=== PATIENT | female | born 1950 | race Caucasian/White ===

== ENCOUNTER 2016-03-14 23:50 | Emergency (ER) | payer MEDICARE ==
[2016-03-14] MEDS ORDERED: SODIUM CHLORIDE 0.9% 1,000 ML IV STA ×2 (23:54)
[2016-03-14] MEDS ORDERED: MORPHINE SULFATE 4 MG/ML SYRINGE IV STA (23:54)
[2016-03-15 00:05] VITALS: RESP 18
[2016-03-15] MEDS ORDERED: DIPH,PERTUS(ACELL)TETVAC-LF 0.5 ML VIAL IM ONE (00:28)
[2016-03-15] MEDS ORDERED: ceFAZolin 1,000 MG in DEXTROSE/WATER 1 50ML.BAG IVPB STA (00:28)
--- NOTE | 2016-03-15 00:28 | ED ---
General Adult HPI - General Stated complaint: fall Time Seen by Provider: 03/14/16 23:54 Source: patient, EMS, RN notes reviewed, old records reviewed Mode of arrival: EMS Limitations: no limitations - History of Present Illness Initial comments: This is a 65 female ER for evaluation. This patient presents for evaluation of fall. Patient does admit to alcohol drinking tonight, fell onto stairs landing on her face. States that she has bleeding for face pain herno loss of consciousness. Patient is not on blood thinners. Patient denies any other pain or complaints - Related Data Allergies Allergy/AdvReac Type Severity Reaction Status Date / Time No Known Allergies Allergy Verified 03/15/16 00:01 Review of Systems ROS Statement: Those systems with pertinent positive or pertinent negative responses have been documented in the HPI. ROS Other: All systems not noted in ROS Statement are negative. General Exam Limitations: no limitations General appearance: alert, in no apparent distress Head exam: Absent: atraumatic (Patient does have significant deformity to nose and upper lip, no loose teeth, no evidence of before, no severe ecchymosis, patient does have skin avulsion to nose) Eye exam: Present: normal appearance, PERRL, EOMI. Absent: scleral icterus, conjunctival injection, periorbital swelling ENT exam: Present: normal exam, mucous membranes moist Neck exam: Present: normal inspection. Absent: tenderness, meningismus, lymphadenopathy Respiratory exam: Present: normal lung sounds bilaterally. Absent: respiratory distress, wheezes, rales, rhonchi, stridor Cardiovascular Exam: Present: regular rate, normal rhythm, normal heart sounds. Absent: systolic murmur, diastolic murmur, rubs, gallop, clicks GI/Abdominal exam: Present: soft, normal bowel sounds. Absent: distended, tenderness, guarding, rebound, rigid Extremities exam: Present: normal inspection, full ROM, normal capillary refill. Absent: tenderness, pedal edema, joint swelling, calf tenderness Back exam: Present: normal inspection Neurological exam: Present: alert, oriented X3, CN II-XII intact Psychiatric exam: Present: normal affect, normal mood Skin exam: Present: warm, dry, intact, normal color. Absent: rash Course Vital Signs 03/14/16 03/15/16 03/15/16 23:57 01:00 01:20 Temperature 98.7 F Pulse Rate 66 79 68 Respiratory 18 18 18 Rate Blood Pressure 156/74 104/63 142/68 O2 Sat by Pulse 98 98 97 Oximetry - Reevaluation(s) Reevaluation #1: 03/15/16 01:29 At this time patient is able to have pain control achieved, resting comfortably EKG Findings - EKG Comments: EKG Findings:: EKG shows sinus rhythm rate of 62, DE 190, QRS 78, QTC 448 Medical Decision Making - Medical Decision Making 65 female in the ER for evaluation status post alcohol intoxication fall. Patient complex life issues now with of her son's , patient centile was drinking today did fall down stairs, did suffer from nasal fracture as well as complex nasal laceration. Patient will be need to need transfer for plastic surgery correction - Lab Data Result diagrams: 03/15/16 00:05 03/15/16 00:05 Lab Results 03/15/16 03/15/16 03/15/16 Range/Units 00:05 00:05 00:05 WBC 6.9 (3.8-10.6) k/uL RBC 4.11 (3.80-5.40) m/uL Hgb 13.2 (11.4-16.0) gm/dL Hct 39.8 (34.0-46.0) % MCV 96.9 (80.0-100.0) fL MCH 32.2 (25.0-35.0) pg MCHC 33.2 (31.0-37.0) g/dL RDW 13.1 (11.5-15.5) % Plt Count 200 (150-450) k/uL Neutrophils % 50 % Lymphocytes % 40 % Monocytes % 4 % Eosinophils % 3 % Basophils % 1 % Neutrophils # 3.4 (1.3-7.7) k/uL Lymphocytes # 2.7 (1.0-4.8) k/uL Monocytes # 0.3 (0-1.0) k/uL Eosinophils # 0.2 (0-0.7) k/uL Basophils # 0.1 (0-0.2) k/uL PT (9.0-12.0) sec INR (<1.1) APTT (22.0-30.0) sec Sodium 142 (137-145) mmol/L Potassium 3.4 L (3.5-5.1) mmol/L Chloride 103 (98-107) mmol/L Carbon Dioxide 21 L (22-30) mmol/L Anion Gap 18 mmol/L BUN 7 (7-17) mg/dL Creatinine 0.60 (0.52-1.04) mg/dL Est GFR (MDRD) Af Amer >60 (>60 ml/min/1.73 sqM) Est GFR (MDRD) Non-Af >60 (>60 ml/min/1.73 sqM) Glucose 112 H (74-99) mg/dL Calcium 8.9 (8.4-10.2) mg/dL Phosphorus 4.2 (2.5-4.5) mg/dL Magnesium 1.9 (1.6-2.3) mg/dL Total Bilirubin 0.4 (0.2-1.3) mg/dL AST 34 (14-36) U/L ALT 31 (9-52) U/L Alkaline Phosphatase 49 (38-126) U/L Total Creatine Kinase 316 H (30-135) U/L CK-MB (CK-2) 3.2 H* (0.0-2.4) ng/mL CK-MB (CK-2) Rel Index 1.0 Troponin I <0.012 (0.000-0.034) ng/mL Total Protein 7.1 (6.3-8.2) g/dL Albumin 4.2 (3.5-5.0) g/dL Serum Alcohol 224 mg/dL 03/15/16 Range/Units 00:05 WBC (3.8-10.6) k/uL RBC (3.80-5.40) m/uL Hgb (11.4-16.0) gm/dL Hct (34.0-46.0) % MCV (80.0-100.0) fL MCH (25.0-35.0) pg MCHC (31.0-37.0) g/dL RDW (11.5-15.5) % Plt Count (150-450) k/uL Neutrophils % % Lymphocytes % % Monocytes % % Eosinophils % % Basophils % % Neutrophils # (1.3-7.7) k/uL Lymphocytes # (1.0-4.8) k/uL Monocytes # (0-1.0) k/uL Eosinophils # (0-0.7) k/uL Basophils # (0-0.2) k/uL PT 10.5 (9.0-12.0) sec INR 1.0 (<1.1) APTT 21.3 L (22.0-30.0) sec Sodium (137-145) mmol/L Potassium (3.5-5.1) mmol/L Chloride (98-107) mmol/L Carbon Dioxide (22-30) mmol/L Anion Gap mmol/L BUN (7-17) mg/dL Creatinine (0.52-1.04) mg/dL Est GFR (MDRD) Af Amer (>60 ml/min/1.73 sqM) Est GFR (MDRD) Non-Af (>60 ml/min/1.73 sqM) Glucose (74-99) mg/dL Calcium (8.4-10.2) mg/dL Phosphorus (2.5-4.5) mg/dL Magnesium (1.6-2.3) mg/dL Total Bilirubin (0.2-1.3) mg/dL AST (14-36) U/L ALT (9-52) U/L Alkaline Phosphatase (38-126) U/L Total Creatine Kinase (30-135) U/L CK-MB (CK-2) (0.0-2.4) ng/mL CK-MB (CK-2) Rel Index Troponin I (0.000-0.034) ng/mL Total Protein (6.3-8.2) g/dL Albumin (3.5-5.0) g/dL Serum Alcohol mg/dL - Radiology Data Radiology results: report reviewed (CT brain C-spine are negative, is CT face shows complex laceration with nasal fracture), image reviewed Disposition Clinical Impression: Nasal fracture, Fall, Alcohol intoxication, Complex laceration of nose Disposition: OTHER INSTITUTION NOT DEFINED Condition: Fair Referrals: Nonstaff,Physician [Primary Care Provider] - 1-2 days - Out of Hospital Transfer - Req. Specs Out of Hospital Transfer - Requested Specifics: Other Emergency Center ( [facility]
[2016-03-15 00:33] LABS: Basophils # (A) 0.1 k/uL (0-0.2); Basophils % (A) 1 %; CH 33.3; CHCM 34.5; Eosinophils # (A) 0.2 k/uL (0-0.7); Eosinophils % (A) 3 %; HCT 39.8 % (34.0-46.0); HDW 2.17; HGB 13.2 gm/dL (11.4-16.0); Luc # (Auto) 0.19; Luc % (Auto) 3; Lymphocytes # (A) 2.7 k/uL (1.0-4.8); Lymphocytes % (A) 40 %; MCH 32.2 pg (25.0-35.0); MCHC 33.2 g/dL (31.0-37.0); MCV 96.9 fL (80.0-100.0); Mean Platelet Volume 7.4; Monocytes # (A) 0.3 k/uL (0-1.0); Monocytes % (A) 4 %; Neutrophils # (A) 3.4 k/uL (1.3-7.7); Neutrophils % (A) 50 %; RBC 4.11 m/uL (3.80-5.40); RDW 13.1 % (11.5-15.5); WBC 6.9 k/uL (3.8-10.6); WBC (Perox) 7.12
[2016-03-15 00:41] LABS: ALT 31 U/L (9-52); AST 34 U/L (14-36); Alkaline Phosphatase 49 U/L (38-126); Anion Gap 18 mmol/L; Blood Urea Nitrogen 7 mg/dL (7-17); Calcium 8.9 mg/dL (8.4-10.2); Carbon Dioxide 21 mmol/L (22-30); Chloride 103 mmol/L (98-107); Glucose 112 mg/dL (74-99); Magnesium 1.9 mg/dL (1.6-2.3); Non-African American GFR(MDRD) >60 (>60 ml/min/1.73 sqM); Phosphorous 4.2 mg/dL (2.5-4.5); Potassium 3.4 mmol/L (3.5-5.1); Sodium 142 mmol/L (137-145); Total Bilirubin 0.4 mg/dL (0.2-1.3); Total Protein 7.1 g/dL (6.3-8.2)
[2016-03-15 00:44] LABS: Alcohol 224 mg/dL
[2016-03-15 00:45] LABS: Prothrombin Time 10.5 sec (9.0-12.0)
[2016-03-15 00:54] LABS: Partial Thromboplastin Time 21.3 sec (22.0-30.0)
[2016-03-15 01:07] LABS: Creatine Kinase 316 U/L (30-135)
--- NOTE | 2016-03-15 01:15 | CT ---
EXAMINATION TYPE: CT facial bones wo con DATE OF EXAM: 03/15/2016 1:00 AM COMPARISON: NONE HISTORY: Pt fell down stairs lacerations to face and upper lip CT DLP: 1825.30 mGycm Automated exposure control for dose reduction was used. TECHNIQUE: CT scan of the sinuses is performed without contrast, axial images are obtained, coronal r eformatted images are also reviewed. FINDINGS: The orbital margins are intact. There is no evidence of blowout fracture. There is fairly n ormal aeration of the paranasal sinuses. There is bilateral patency of the ostiomeatal complex. Maxil la is intact. The mandible appears intact. The zygomatic arches appear normal. Temporal bones appear intact. There is a comminuted fracture of the nasal bone with laceration. IMPRESSION: Comminuted nasal bone fracture which is deviated slightly to the right side. Laceration.
--- NOTE | 2016-03-15 01:17 | CT ---
EXAMINATION TYPE: CT brain noni wo con DATE OF EXAM: 03/15/2016 1:00 AM COMPARISON: NONE HISTORY: pt. Fell down stairs and has lacerations to face and upper lip CT DLP: 1825.30 mGycm Automated exposure control for dose reduction was used. TECHNIQUE: CT scan of the head and cervical spine are performed without contrast. FINDINGS: The ventricles and sulci appear normal. There is no mass effect or midline shift. There i s no sign of intracranial hemorrhage. The calvarium is intact. The cervical vertebra have normal alignment. Disc spaces are fairly well-maintained. Skull base is in tact. There is no evidence of a fracture. Facet joints are intact. There is hypertrophic mild facet a rthropathy. IMPRESSION: Negative CT scan of the brain. Mild facet arthropathy in the cervical spine. No fracture.
[2016-03-15 01:19] LABS: Troponin I <0.012 ng/mL (0.000-0.034)
[2016-03-15] MEDS ORDERED: MORPHINE SULFATE 4 MG/ML SYRINGE IVP STA (01:19)
[2016-03-15 01:22] LABS: Creatine Kinase MB 3.2 ng/mL (0.0-2.4)
[2016-03-15 02:12] VITALS: BP 140/69; PULSE 77; TEMP 98.1
== END 2016-03-15 02:32 | disposition other institution (70) ==
LOC: EC 23:50 → MERGE 23:50 → EC 03-15 02:32
DX: S02.2XXA Fracture of nasal bones, initial encounter for closed fracture (principal); S01.21XA Laceration without foreign body of nose, initial encounter; F10.129 Alcohol abuse with intoxication, unspecified; Y90.7 Blood alcohol level of 200-239 mg/100 ml; Z23 Encounter for immunization; W10.9XXA Fall (on) (from) unspecified stairs and steps, initial encounter
CPT/HCPCS: 36415; 93005; 80053; 82550; 82553; 83735; 84100; 84484; 85025; 85610; 85730; 80320; 72125; 70486; 70450; 90715; 90471; 96365; 96375; 96376; 96361; 99285; J2270; J0690